=== PATIENT | female | born 1985 | race Two or more races ===

== ENCOUNTER 2023-11-08 15:08 | Emergency (ER) | payer OTHER ==
[~2023-11-08] VITALS: Ht 160 cm; Wt 52.2 kg
[2023-11-08] MEDS ORDERED: METRONIDAZOLE500 MG PO (15:51)
[2023-11-08] MEDS ORDERED: PEPCID AC10 MG PO (15:51)
[2023-11-08] MEDS ORDERED: KETOROLAC TROMETHAMINE 30 MG VIAL IV ONE (17:45)
[2023-11-08 18:09] LABS: PH,URINE 6.5 (5.0-8.0); URINE APPEARANCE Cloudy; URINE BILIRRUBIN Negative (NEGATIVE); URINE BLOOD Moderate; URINE COLOR Yellow; URINE GLUCOSE Negative (NEGATIVE); URINE LEUKOCYTE Trace; URINE NITRATE Negative; URINE PROTEIN Negative (NEGATIVE); URINE UROBILINOGEN 0.2 E.U./dl
[2023-11-08 18:13] LABS: URINE BACTERIA 1001.6 uL (0.0-1933); URINE EPITHELIAL CELLS 62.9 uL (0.0-38.8); URINE RBC 3.4 uL (0.0-20.8)
[2023-11-08 18:27] LABS: HEMATOCRIT 41.6 % (36.0-45.00); HEMOGLOBIN 14.7 g/dL (12.0-15.00); MEAN CELL VOLUME 90.6 fL (80.00-100.00); MEAN CORPUSCULAR HGB CONC 35.3 g/dl (32.0-36.0); PLATELET COUNT 267 K/uL (150-450); RED BLOOD COUNT 4.59 M/uL (4.00-6.00); RED CELL DISTRIBUTION WIDTH 12.5 % (11.5-14.5)
[2023-11-08 18:30] LABS: CALCIUM 9.7 mg/dL (8.5-10.1); CREATININE SERUM 0.76 mg/dL (0.55-1.02); GFR 85.63; POTASSIUM 3.88 mEq/L (3.5-5.1)
== END 2023-11-08 21:13 | disposition home or self-care (01) ==
LOC: ER 15:09
PROVIDERS: Nurse Practitioner Family
DX: R10.2 Pelvic and perineal pain (principal)

== ENCOUNTER → 2023-11-22 | Emergency (ER) | payer OTHER ==
[~2023-11-22] VITALS: Ht 160 cm; Wt 52.2 kg
[~2023-11-22] MED LIST: METRONIDAZOLE500 MG PO; PEPCID AC10 MG PO
== END | disposition left against medical advice (07) ==
LOC: ER 05:44
DX: Z53.21 Procedure and treatment not carried out due to patient leaving prior to being seen by health care provider (principal)